=== PATIENT | male | born 1955 | race Caucasian/White ===

== ENCOUNTER 2016-09-16 22:31 | Inpatient (IN) ==
[2016-09-17] MEDS ORDERED: Naloxone 0.4 MG/ML INJ IVP PRN (03:11)
[2016-09-17] MEDS ORDERED: D5% in Water 1,000 ML IV PRN (03:12)
[2016-09-17] MEDS ORDERED: Dextrose Gel 15 GM PO PRN ×2 (03:12)
[2016-09-17] MEDS ORDERED: *HR* Dextrose 50 % in Water (Syg) 50 ML SYRINGE IVP PRN (03:12)
[2016-09-17] MEDS ORDERED: Ipratropium/Albuterol Neb 3 ML IH PRN (03:13)
[2016-09-17] MEDS ORDERED: Furosemide 20 MG/2 ML VIAL IVP ONE (03:26)
--- NOTE | 2016-09-17 03:44 | Internal Med History&Physical ---
Date of Encounter: 09/17/16 Time of Encounter: 03:00 Assessment and Plan (1) Acute respiratory failure with hypercapnia Current visit: Yes Status: Acute ABG at [facility]: 7.30/87/72/42.7/91 LIkely secondary to COPD exacerbation, however patient has chronic history of CO2 retention Respiratory status improved since arrival Currently saturating well on nasal cannula Will continue IV steroids and bronchodilators continue to closely monitor O2 sat, O2sat goal: 89-92% monitor off abx at this time, no clinical signs of infectious etiology present Bipap as needed ABG as needed (2) COPD exacerbation Current visit: Yes Status: Acute Likely secondary to noncompliance continue management as listed above (3) CHF (congestive heart failure) Current visit: Yes Status: Acute Last 2D echo from March 2016: LVEF 65-70% Continue diuretic therapy Qualifiers: Congestive heart failure type: unspecified congestive heart failure type Congestive heart failure chronicity: chronic Qualified Code(s): I50.9 - Heart failure, unspecified (4) Lung cancer Current visit: Yes Status: Chronic Unclear of patient's current status with malignancy As of March 2017, palliative care was recommending hospice Please follow up with family in regards to goals of care and code status Qualifiers: Laterality: right Lung location: unspecified part of lung Qualified Code( s): C34.91 - Malignant neoplasm of unspecified part of right bronchus or lung (5) Hyperglycemia due to type 2 diabetes mellitus Current visit: Yes Status: Chronic Continue to monitor fingerstick and blood glucose continue home insulin dosing Started correctional insulin sliding scale as needed Qualifiers: Diabetes mellitus nursing home insulin use: unspecified nursing home insulin use status Qualified Code(s): E11.65 - Type 2 diabetes mellitus with hyperglycemia (6) Obesity (BMI 30-39.9) Current visit: Yes Status: Chronic (7) DVT prophylaxis Current visit: Yes Status: Acute Lovenox SQ Internal Medicine - H&P: HPI Chief complaint: transfer from [place] for respiratory distress Admitted From: Intrahospital Transfer Plans for Post Hospital Care: Home History of present illness: Mr. Marrero is a 60 year old male with PMH of COPD on home oxygen, right lung cancer s/p chemo and radiation, CHF, DM, HTN, MRDD who is transferred from [facility] for management of acute respiratory failure. [facility], patient was noted to be saturating in 70s with nasal cannula. He received IV steroids, antibiotics, and nebulizer treatments with improvement in his saturation and was transferred to [facility] for further management. Patient has underlying MRDD and not able to provide history due to which information was obtained from the records. Pt has history of right lung cancer with mediastinal lymphadenopathy and has undergone chemo and radiation therapy at [facility]. He was hospitalized in March 2016 for the same complains as today. Palliative care consultation was initiated and patient was made DNR CC arrest at that time , and patient was qualified as a candidate for hospice care. At this time I am not able to get in touch with patient's family and he is not able to provide me information about his advance directives. He is resting in bed, saturating well on nasal cannula. He reports of not using his bronchodilators as prescribed for the last few days which contributed to his current exacerbation. He denies any headache, chest pain, abd pain, n/v, fever, or chills at this time. He reports of worsening exertional dyspnea prior to hospitalization. Patient is AAO x 3 however does not demonstrate understanding of his medical history or diagnosis. Please follow up with family in regards to patient's code status. Past Med Surg Social Fam HX - Past Medical History Medical history: cancer, CHF, COPD, diabetes, GERD, hyperlipidemia, hypertension , other Psychiatric history: anxiety, depression - Past Surgical History Surgical History: sinus surgery, other - Social History Smoking Status: Former smoker Smokeless Tobacco Status: No Alcohol use: none Drug use: none - Family History Father Adopted: [place]: Henrry Marrero Family Member Ethnicity: Non- Living Status: Age at : 55 Cause of : prostate CA Hx Family Cardiac Disorders: No Hx Family Respiratory Disorders: Yes Hx Family Cancer: No Hx Family GI Disorders: No Hx Family Endocrine Disorder: No Hx Family Neuromuscular Disorders: No Hx Family Neurologic Disorders: No Hx Family HEENT Disorders: No Hx Family Autoimmune Disorders: No Internal Medicine - H&P: Meds Albuterol Neb [Proventil Neb] 2.5 mg IH Q4HR 12/21/15 [History] Albuterol Sulfate [Albuterol Inhaler] 2 puff IH Q4H PRN 12/21/15 [History] Fluticasone/Salmeterol [Advair 100-50 Diskus] 1 puff PO BID 12/21/15 [History] Ipratropium/Albuterol Neb [Duoneb] 3 ml IH QID 12/21/15 [History] Lovastatin 40 mg PO DAILY 12/21/15 [History] Omeprazole [PriLOSEC] 20 mg PO DAILY 12/21/15 [History] Tiotropium [Spiriva] 1 puff IH DAILY 12/21/15 [History] TraZODone 50 mg PO HS 12/21/15 [History] Insulin Glargine [Lantus] 12 unit SQ HS 01/22/16 [History] Ibuprofen [Motrin] 600 mg PO Q8HR PRN 03/26/16 [History] Aclidinium Bassett [Tudorza Pressair] 1 puff IH DAILY 04/03/16 [History] Mag Hydrox/Al Hydrox/Simeth [Maalox Advanced Suspension] 10 ml PO DAILY [History] Ondansetron HCl [Zofran] 1 tab PO TID PRN 04/03/16 [History] Oxycodone HCl [Oxaydo] 1 tab PO QID PRN 04/03/16 [History] Lactobacillus [Culturelle] 1 cap PO BID 05/01/16 [History] Famotidine [Heartburn Prevention] 20 mg PO DAILY 09/16/16 [History] Furosemide [Lasix] 80 mg PO DAILY 09/16/16 [History] Potassium Chloride [K-Tab ER] 20 meq PO DAILY 09/16/16 [History] Allergies No Known Allergies Allergy (Verified 08/16/15 19:50) All Systems PM: A 10-system review of systems was performed and is negative for pertinent findings except as documented above in the HPI. - Constitutional Constitutional: as per HPI - Constitutional Vitals: Temp Pulse Resp BP Pulse Ox 98.1 F 125 20 119/88 88 L 09/16/16 23:58 09/16/16 23:58 09/16/16 23:58 09/16/16 23:58 09/16/16 23:58 General appearance: Present: A&O X 3, morbidly obese, no acute distress - Head Head exam: Present: atraumatic, normocephalic - Eye Eye exam: Present: normal appearance, conjuntiva pink, sclera anicteric - Respiratory Respiratory exam: Present: wheezes (bilateral expiratory wheezing and bibasilar crackles). Absent: accessory muscle use, respiratory distress - Cardiovascular Cardiovascular exam: Present: +S1, +S2, tachycardia - GI/Abdominal GI/Abdominal exam: Present: distended (obese), normal bowel sounds, soft. Absent: tenderness - Extremities Exam Extremities exam: Present: pedal edema, warm, radial pulses palpable and symetrical. Absent: calf tenderness, tenderness - Neurological Exam Neurological exam: Present: alert, oriented X3 - Psychiatric Psychiatric exam: Present: normal affect, normal mood
[2016-09-17] MEDS: Insulin LISPRO 300 UNITS/3 ML VIAL SQ SCH ×5 (03:54→22:12)
[2016-09-17 05:48] LABS: Basophils % 0.1 %; Hematocrit 44.1 % (37.5-50.1); Hemoglobin 13.7 g/dL (12.9-16.9); Immature Granulocytes % 0.6 % (0-4); Lymphocytes # 0.5 K/mcL (0.6-4.6); Lymphocytes % 4.8 %; Mean Corpuscular HGB Conc 31.1 g/dL (31.6-35.5); Mean Corpuscular Volume 90.2 fL (83.0-100.0); Mean Platelet Volume 10.5 fL (9.4-12.4); Monocytes # 0.2 K/mcL (0.0-1.3); Monocytes % 1.7 %; Neutrophils # 8.8 K/mcL (1.6-8.9); Platelet Count 243 K/mcL (140-400); Red Blood Count 4.89 M/mcL (4.19-5.50); Red Cell Distribution Width 13.9 % (11.5-14.5); Segmented Neutrophils % 92.8 %
[2016-09-17] MEDS ORDERED: MethylPREDNISolone 40 MG/ML VIAL IVP SCH (06:00)
[2016-09-17 06:56] LABS: BUN/Creatinine Ratio 15 (6-26); Blood Urea Nitrogen 13 mg/dL (8-26); Calcium 9.5 mg/dL (8.6-10.8); Carbon Dioxide 35 mEq/L (19-29); Chloride 94 mEq/L (98-109); Glucose 353 mg/dL (70-99); Magnesium 1.7 mg/dL (1.6-2.6); Osmolality,Calculated 300 (280-300); Phosphorous 2.7 mg/dL (2.3-4.7); Potassium 4.4 mEq/L (3.5-4.5); Sodium 138 mEq/L (136-145); eGFR For African Americans > 60 (> 60); eGFR For Non-African Americans > 60 (> 60)
[2016-09-17] MEDS: MethylPREDNISolone 40 MG/ML VIAL IVP SCH ×3 (06:56→22:12)
[2016-09-17] MEDS: *HR* Enoxaparin 40 MG/0.4 ML SYRINGE SQ SCH (06:57)
[2016-09-17] MEDS: Ipratropium/Albuterol Neb 3 ML IH SCH ×5 (09:47→20:13)
[2016-09-17] MEDS: Furosemide 40 MG TABLET PO SCH (09:56)
--- NOTE | 2016-09-17 10:27 | Event Note ---
<Mayo Mena - Last Filed: 09/17/16 14:54> Date of Encounter: 09/17/16 Time of Encounter: 08:15 Mr. Marrero 60-year-old male with known COPD, heart failure and type 2 diabetes has been seen and evaluated this morning after his admission earlier this morning. He is in stable condition in good humor and his only complaints this morning consist of continued shortness of breath which improved status post DuoNeb treatment. Patient felt that he fell behind on his DuoNeb treatments at home and that may be contributing to his current breathing issues. He maintains appetite and thirst. Patient complains of right lower abdominal tenderness which he first noticed this morning. He says his last bowel movement was over 4 days ago and at he has not been taking his bowel regimens at home. He denies any other concerns or complaints at this time. Vitals were reviewed. Blood pressure stable, afebrile, oxygen saturation. 90% on 4 L. Laboratory results reviewed. Physical examination demonstrates diminished bronchial vesicular breath sounds, with mild expiratory wheeze. Abdomen is distended with tenderness to palpation in the right lower quadrant. Abdomen was without erythema, edema or ecchymosis. Patient has positive bowel sounds. Extremities without erythema or edema. Assessment and plan: COPD exacerbation: patient started back on Levaquin 750 daily, continue current breathing treatments that include DuoNeb, Symbicort and methylprednisone steroids. History of CHF: Continue Lasix 80 mg by mouth. Patient does not appear to be fluid overloaded Type 2 diabetes: Patient has hyperglycemia likely secondary to COPD exacerbation and methylprednisone steroid bump. Continue inpatient sliding scale. <Ck Samuels - Last Filed: 09/17/16 18:42> Date of Encounter: 09/17/16 Mr. Marrero was admitted during the night for acute respiratory distress due to COPD. On exam he has large mass in L supraclavicular area and dilated vessels on L arm. Will check CT to R/O thrombus.
[2016-09-17] MEDS: Budesonide/Formoterol 80/4.5 MDI IH SCH (11:22)
[2016-09-17] MEDS ORDERED: GuaiFENesin Liq 200 MG/10 ML UDC PO PRN (13:42)
[2016-09-17] MEDS ORDERED: Insulin DETEMIR 100 UNIT/ML X5UNITS SQ SCH (21:00)
[2016-09-17] MEDS ORDERED: NON-FORMULARY MEDICATION 1 EACH EACH (Insulin Glargine [Lantus] 12 UNIT) SQ SCH (21:00)
[2016-09-17] MEDS: Levofloxacin 750 MG/150 ML 750 MG/150 ML BAG IVPB SCH (22:11)
[2016-09-18] MEDS: Ipratropium/Albuterol Neb 3 ML IH SCH ×7 (00:16→23:45)
[2016-09-18] MEDS: Budesonide/Formoterol 80/4.5 MDI IH SCH ×3 (00:17→20:03)
[2016-09-18 06:14] LABS: Basophils % 0.1 %; Hematocrit 42.1 % (37.5-50.1); Hemoglobin 13.2 g/dL (12.9-16.9); Immature Granulocytes % 0.7 % (0-4); Lymphocytes # 0.9 K/mcL (0.6-4.6); Lymphocytes % 7.4 %; Mean Corpuscular HGB Conc 31.4 g/dL (31.6-35.5); Mean Corpuscular Hemoglobin 27.8 pg (28.0-33.3); Mean Corpuscular Volume 88.8 fL (83.0-100.0); Mean Platelet Volume 10.9 fL (9.4-12.4); Monocytes # 0.7 K/mcL (0.0-1.3); Monocytes % 5.4 %; Neutrophils # 10.4 K/mcL (1.6-8.9); Platelet Count 253 K/mcL (140-400); Red Blood Count 4.74 M/mcL (4.19-5.50); Red Cell Distribution Width 14.1 % (11.5-14.5); Segmented Neutrophils % 86.4 %
[2016-09-18 06:30] LABS: BUN/Creatinine Ratio 22 (6-26); Blood Urea Nitrogen 20 mg/dL (8-26); Calcium 9.8 mg/dL (8.6-10.8); Carbon Dioxide 39 mEq/L (19-29); Chloride 90 mEq/L (98-109); Glucose 365 mg/dL (70-99); Osmolality,Calculated 307 (280-300); Potassium 3.7 mEq/L (3.5-4.5); Sodium 140 mEq/L (136-145); eGFR For African Americans > 60 (> 60); eGFR For Non-African Americans > 60 (> 60)
[2016-09-18] MEDS: MethylPREDNISolone 40 MG/ML VIAL IVP SCH (06:50)
[2016-09-18] MEDS: *HR* Enoxaparin 40 MG/0.4 ML SYRINGE SQ SCH (06:50)
[2016-09-18] MEDS: Furosemide 40 MG TABLET PO SCH (09:28)
[2016-09-18] MEDS: Insulin LISPRO 300 UNITS/3 ML VIAL SQ SCH ×4 (09:28→21:06)
--- NOTE | 2016-09-18 16:22 | Internal Med Progress Note ---
<Mayo Mena - Last Filed: 09/18/16 16:20> Date of Encounter: 09/18/16 Time of Encounter: 08:30 - Assessment and plan (1) COPD exacerbation Current Visit: Yes Status: Acute Assessment and plan: Patient with known COPD and lung cancer presenting with COPD exacerbation. Still continuing nasal cannula oxygen therapy. Overall condition improving. Plan: - Continue DuoNeb scheduled therapy, continue Symbicort 1 puff twice a day - Continue to wean nasal cannula oxygen therapy - IV steroids switched to prednisone 40 mg by mouth daily - Continue Levaquin 750 mg IV every 24 hours (2) Acute respiratory failure with hypercapnia Current Visit: Yes Status: Acute Assessment and plan: Acute on chronic respiratory failure in the setting of COPD exacerbation with patient known to have underling COPD and lung cancer. Patient is improving compared to admission with reduction in oxygen requirements and improvement in respiratory status. Plan: -As discussed below. (3) Hyperglycemia due to type 2 diabetes mellitus Current Visit: Yes Status: Chronic Assessment and plan: Patient is hyperglycemic with known type 2 diabetes. Likely secondary to COPD exacerbation and IV steroids. Plan: -Continue before meals and at bedtime glucose checks - Levemir increased to 24 units subcutaneous at bedtime, continue inpatient glucose sliding scale Qualifiers: Diabetes mellitus prison insulin use: unspecified roasterman insulin use status Qualified Code(s): E11.65 - Type 2 diabetes mellitus with hyperglycemia (4) Lung cancer Current Visit: Yes Status: Chronic Assessment and plan: Patient has known history of right hilar mass which appears stable on chest x- ray. Currently in stable condition. Qualifiers: Laterality: right Lung location: unspecified part of lung Qualified Code( s): C34.91 - Malignant neoplasm of unspecified part of right bronchus or lung (5) Obesity (BMI 30-39.9) Current Visit: Yes Status: Chronic Assessment and plan: Patient morbidly obese, lifestyle modifications diet modifications to be discussed prior to discharge to improve overall medical comorbidities. (6) DVT prophylaxis Current Visit: Yes Status: Acute Assessment and plan: Continue Lovenox 40 mg subcutaneous every 6 hours. - Subjective Interval history: Mr. Marrero has been seen and evaluated patient bedside this morning. He is sitting up in the cherries in no acute distress and is without concern. He feels like his breathing has improved but is not completely back to baseline. He denies any other pains or discomfort at this time, he denies nausea, vomiting , diarrhea. He has no other concerns and wishes to feel better prior to discharge. - Constitutional Vitals: Temp Pulse Resp BP Pulse Ox 97.6 F 102 16 115/76 95 09/18/16 15:49 09/18/16 15:49 09/18/16 15:49 09/18/16 15:49 09/18/16 15:49 General appearance: Present: A&O X 3, morbidly obese, no acute distress - Head Head exam: Present: atraumatic, normocephalic - Eye Eye exam: Present: PERRL, conjuntiva pink, sclera anicteric - ENT ENT exam: Present: mucous membranes moist - Neck Neck exam general surgery: Present: supple, trachea midline - Respiratory Respiratory exam: Present: wheezes Additional comments: Patient has diffuse diminished bronchial vesicular breath sounds with mild expiratory wheeze. - Cardiovascular Cardiovascular exam: Present: RRR, +S1, +S2 - GI/Abdominal GI/Abdominal exam: Present: normal bowel sounds, soft. Absent: tenderness Additional comments: Obese abdomen - Extremities Exam Extremities exam: Present: normal capillary refill, warm, radial pulses palpable and symetrical Additional comments: Extremities symmetric bilaterally without any signs of deformity. Patient is moving all 4 extremities without restriction. - Back Exam Back exam: Present: normal inspection - Neurological Exam Neurological exam: Present: alert, oriented X3, no focal deficits, strengths equal and symetr throughout - Psychiatric Psychiatric exam: Present: normal affect, normal mood - Skin Skin exam: Present: warm Internal Medicine: Result - Labs CBC & Chem 7: 09/18/16 05:08 09/18/16 05:08 Labs: Short CBC 09/18/16 Range/Units 05:08 WBC 12.0 H (4.3-11.1) K/mcL Hgb 13.2 (12.9-16.9) g/dL Hct 42.1 (37.5-50.1) % Plt Count 253 (140-400) K/mcL Neutrophils # 10.4 H (1.6-8.9) K/mcL BMP 09/18/16 05:08 Sodium 140 Potassium 3.7 Chloride 90 L Carbon Dioxide 39 H BUN 20 Creatinine 0.89 Glucose 365 H Calcium 9.8 - Impressions Impressions Chest CT 09/17/16 18:43 IMPRESSION: 1. Mild worsening moderate right pleural effusion with compressive atelectasis. 2. Unchanged partial collapse of the right middle lobe. 3. Unchanged right upper lobe pulmonary nodules, bronchiolitis and right lower lobe airspace disease likely due to post treatment changes, but cannot exclude underlying malignancy. 4. Improved with only 1 residual enlarged left paratracheal lymph node. 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 Follow up with PCP in the next 3-5 days. Return to the emergency department if symptoms return or worsen. Referrals: NO,PCP [Primary Care Provider] - Bobby Terrell DO [Non-Partnered Physician] - 09/23/16 2:30 pm Prescriptions: Levofloxacin [Levaquin] 750 mg PO DAILY #5 tablet PredniSONE 40 mg PO DAILY 5 Days <Ck Samuels - Last Filed: 09/19/16 17:36> Date of Encounter: 09/18/16 - Constitutional Vitals: Temp Pulse Resp BP Pulse Ox 97.1 F L 97 18 126/82 94 L 09/19/16 08:00 09/19/16 08:00 09/19/16 16:32 09/19/16 08:00 09/19/16 16:32 Internal Medicine: Result - Labs CBC & Chem 7: 09/19/16 04:37 09/19/16 04:37 Labs: Short CBC 09/19/16 Range/Units 04:37 WBC 11.6 H (4.3-11.1) K/mcL Hgb 13.6 (12.9-16.9) g/dL Hct 43.8 (37.5-50.1) % Plt Count 234 (140-400) K/mcL Neutrophils # 8.8 (1.6-8.9) K/mcL BMP 09/19/16 04:37 Sodium 143 Potassium 3.0 L Chloride 91 L Carbon Dioxide 41 H* BUN 22 Creatinine 0.86 Glucose 197 H Calcium 9.5 - Attending Attestation I examined this patient and my medical decision-making was reviewed with the Resident Physician on . I agree with the documented findings, disposition and treatment plan as described except to the extent set forth below. Mr. Marrero is feeling somewhat better today. He is on less oxygen. He denies chest pain or GI symptoms. Blood sugars high with steroids. Exam Alert. Comfortable Heart reg Lungs with no wheeze now. Diminished Abd soft I/P 1. Acute exac COPD 2. Hyperglycemia - decrease steroids. Further diagnoses and plan as above.
[2016-09-18] MEDS ORDERED: Insulin DETEMIR 100 UNIT/ML X5UNITS SQ SCH (21:00)
[2016-09-18] MEDS: Levofloxacin 750 MG/150 ML 750 MG/150 ML BAG IVPB SCH (21:05)
[2016-09-19] MEDS: Ipratropium/Albuterol Neb 3 ML IH SCH ×4 (03:19→16:32)
[2016-09-19 05:03] LABS: Basophils % 0.1 %; Eosinophils % 0.2 %; Hematocrit 43.8 % (37.5-50.1); Hemoglobin 13.6 g/dL (12.9-16.9); Immature Granulocytes % 0.4 % (0-4); Lymphocytes # 1.5 K/mcL (0.6-4.6); Mean Corpuscular HGB Conc 31.1 g/dL (31.6-35.5); Mean Corpuscular Hemoglobin 28.1 pg (28.0-33.3); Mean Corpuscular Volume 90.5 fL (83.0-100.0); Mean Platelet Volume 10.4 fL (9.4-12.4); Monocytes # 1.2 K/mcL (0.0-1.3); Monocytes % 10.6 %; Neutrophils # 8.8 K/mcL (1.6-8.9); Platelet Count 234 K/mcL (140-400); Red Blood Count 4.84 M/mcL (4.19-5.50); Red Cell Distribution Width 14.6 % (11.5-14.5); Segmented Neutrophils % 75.7 %
[2016-09-19 05:21] LABS: BUN/Creatinine Ratio 26 (6-26); Blood Urea Nitrogen 22 mg/dL (8-26); Calcium 9.5 mg/dL (8.6-10.8); Chloride 91 mEq/L (98-109); Glucose 197 mg/dL (70-99); Osmolality,Calculated 305 (280-300); Sodium 143 mEq/L (136-145); eGFR For African Americans > 60 (> 60); eGFR For Non-African Americans > 60 (> 60)
[2016-09-19 05:31] LABS: Carbon Dioxide 41 mEq/L (19-29)
[2016-09-19] MEDS: *HR* Enoxaparin 40 MG/0.4 ML SYRINGE SQ SCH (05:45)
[2016-09-19] MEDS: Budesonide/Formoterol 80/4.5 MDI IH SCH (07:53)
[2016-09-19 08:06] VITALS: BP 126/82
[2016-09-19] MEDS: Furosemide 40 MG TABLET PO SCH (08:08)
[2016-09-19] MEDS: Insulin LISPRO 300 UNITS/3 ML VIAL SQ SCH ×3 (08:08→17:12)
[2016-09-19] MEDS ORDERED: predniSONE 20 MG TABLET PO SCH (09:00)
--- NOTE | 2016-09-19 14:40 | Discharge Summary ---
<Mayo Mena - Last Filed: 09/19/16 14:32> Date of Encounter: 09/19/16 Time of Encounter: 09:00 - Discharge Diagnosis (1) COPD exacerbation Priority: Primary Status: Acute (2) Acute respiratory failure with hypercapnia Priority: Primary Status: Acute (3) Hyperglycemia due to type 2 diabetes mellitus Priority: Secondary Status: Chronic Qualifiers: Diabetes mellitus fdc insulin use: unspecified fdc insulin use status Qualified Code(s): E11.65 - Type 2 diabetes mellitus with hyperglycemia (4) Lung cancer Priority: Secondary Status: Chronic Qualifiers: Laterality: right Lung location: unspecified part of lung Qualified Code( s): C34.91 - Malignant neoplasm of unspecified part of right bronchus or lung (5) Obesity (BMI 30-39.9) Priority: Secondary Status: Chronic (6) DVT prophylaxis Priority: Secondary Status: Acute - Discharge Medications Prescriptions: Levofloxacin [Levaquin] 750 mg PO DAILY #5 tablet PredniSONE 40 mg PO DAILY 5 Days Home Medications: Albuterol Neb [Proventil Neb] 2.5 mg IH Q4HR PRN 12/21/15 [History] Albuterol Sulfate [Albuterol Inhaler] 2 puff IH Q4H PRN 12/21/15 [History] Fluticasone/Salmeterol [Advair 100-50 Diskus] 1 puff PO BID 12/21/15 [History] Lovastatin 40 mg PO DAILY 12/21/15 [History] Omeprazole [PriLOSEC] 20 mg PO DAILY 12/21/15 [History] Tiotropium [Spiriva] 18 mcg IH DAILY 12/21/15 [History] TraZODone 50 mg PO HS PRN 12/21/15 [History] Insulin Glargine [Lantus] 12 unit SQ HS 01/22/16 [History] Ibuprofen [Motrin] 600 mg PO Q8HR PRN 03/26/16 [History] Famotidine [Heartburn Prevention] 20 mg PO HS 09/16/16 [History] Furosemide [Lasix] 80 mg PO BID 09/16/16 [History] Potassium Chloride [K-Tab ER] 20 meq PO DAILY 09/16/16 [History] Cetirizine HCl [All Day Allergy] 10 mg PO DAILY 09/17/16 [History] Guaifenesin [Iophen Nr] 200 mg PO Q4H PRN 09/17/16 [History] Oxycodone HCl/Acetaminophen [Percocet 5-325 mg Tablet] 1 each PO Q8H PRN [History] Sennosides [Senna] 17.2 mg PO HS 09/17/16 [History] Levofloxacin [Levaquin] 750 mg PO DAILY #5 tablet 09/19/16 [Rx] PredniSONE 40 mg PO DAILY 5 Days 09/19/16 [Rx] Allergies/Adverse Reactions: Allergies No Known Allergies Allergy (Verified 08/16/15 19:50) Procedures/tests Complete & Pending: Procedures Performed prior 72 hours Category Date Time Status CT chest w con [CT] Routine Cat Scan 09/17/16 18:43 Completed EV venous imaging UE LT Routine Y 09/18/16 16:18 Completed Date of admission: 09/16/16 23:41 Primary care physician: PCP NO Discharging clinician: Mayo Mena Anticipated date of discharge: 09/19/16 - Patient Status Disposition: Home, Self-Care Condition: Good Functional capacity at discharge: independent ambulation Overall status at discharge: patient is progressing back to baseline - Discharge Instructions Instructions: Prednisone (By mouth), Levofloxacin (By mouth), Heart Failure (DC ), Acute Respiratory Distress Syndrome (DC), Lung Cancer (DC), Lung Cancer (GEN) , Diabetes Mellitus Type 1 in Adults (DC), Chronic Obstructive Pulmonary Disease (DC), Chronic Hypertension (DC), Anemia (GEN), Pneumonia (DC), Lung 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 Follow up with PCP in the next 3-5 days. Return to the emergency department if symptoms return or worsen. - Diet and Activity Activity: increase activity as tolerated, wear oxygen at all times Diet: advance to your usual diet Interval History: Mr. Marrero 59 year old male with known lung mass and COPD was admitted on 09/17 for COPD exacerbation. His baseline oxygen requirements are 3L at home. He required 5 liters oxygen NC upon admission. After admission he was started on steroids, scheduled breathing treatments, Levaquin for antibiotic coverage. He complained of abdominal tenderness on the lateral right and constipation for 4+ days. He remained inpatient with stable blood pressure, afebrile, and improving daily with inpatient treatment. Oxygen was weaned down to patients baseline prior to discharge. Constipation resolved. Patient was deemed stable for discharge home with close follow up within 3-5 days post discharge. Scripts were provided at the time of discharge for Levaquin and Prednisone. Hospital course: Mr. Marrero is a 60 year old male - Time Spent with Patient Total time spent providing and/or coordinating discharge services: - Constitutional Vitals: Temp Pulse Resp BP Pulse Ox 97.1 F L 97 18 126/82 86 L 09/19/16 08:00 09/19/16 08:00 09/19/16 11:21 09/19/16 08:00 09/19/16 11:21 General appearance: Present: A&O X 3, morbidly obese, no acute distress - Head Head exam: Present: atraumatic, normocephalic - Eye Eye exam: Present: PERRL, conjuntiva pink, sclera anicteric - ENT ENT exam: Present: mucous membranes moist - Neck Neck exam general surgery: Present: supple, trachea midline - Respiratory Additional comments: diminished breathsounds in the right lower lung base, clear to auscultation in all other lung gasca. - Cardiovascular Cardiovascular exam: Present: RRR - GI/Abdominal GI/Abdominal exam: Present: normal bowel sounds (obese abdomen), soft. Absent: tenderness - Extremities Exam Extremities exam: Present: pedal edema, warm, radial pulses palpable and symetrical - Neurological Exam Neurological exam: Present: alert, no focal deficits, strengths equal and symetr throughout. Absent: speech deficit - Psychiatric Psychiatric exam: Present: normal affect, normal mood - Skin Skin exam: Present: warm <Ck Samuels - Last Filed: 09/19/16 17:42> Date of Encounter: 09/19/16 - Discharge Diagnosis (1) Acute respiratory failure with hypercapnia Status: Acute (2) COPD exacerbation Status: Acute (3) Type 2 diabetes mellitus Priority: Secondary Status: Chronic Qualifiers: Diabetes mellitus complication status: with hyperglycemia Diabetes mellitus fdc insulin use: with exterminator use Qualified Code(s): E11.65 - Type 2 diabetes mellitus with hyperglycemia; Z79.4 - assisted (current) use of insulin (4) CHF (congestive heart failure) Priority: Secondary Status: Chronic Qualifiers: Congestive heart failure type: diastolic Congestive heart failure chronicity: acute on chronic Qualified Code(s): I50.33 - Acute on chronic diastolic (congestive) heart failure (5) HTN (hypertension) Priority: Secondary Status: Chronic Qualifiers: Hypertension type: essential hypertension Qualified Code(s): I10 - Essential (primary) hypertension (6) Obesity (BMI 30-39.9) Status: Chronic Procedures/tests Complete & Pending: Procedures Performed prior 72 hours Category Date Time Status CT chest w con [CT] Routine Cat Scan 09/17/16 18:43 Completed EV venous imaging UE LT Routine Y 09/18/16 16:18 Completed Date of admission: 09/16/16 23:41 Primary care physician: PCP NO Hospital course: Mr. Marrero is a 60 year old male - Time Spent with Patient Total time spent providing and/or coordinating discharge services: 42min - Constitutional Vitals: Temp Pulse Resp BP Pulse Ox 97.1 F L 97 18 126/82 94 L 09/19/16 08:00 09/19/16 08:00 09/19/16 16:32 09/19/16 08:00 09/19/16 16:32 - Attending Attestation I examined this patient and my medical decision-making was reviewed with the Resident Physician on 09/19/16. I agree with the documented findings, disposition and treatment plan as described except to the extent set forth below. Mr. Marrero feels at baseline and is ready to go home. No CP or SOB currently. Exam Alert. Comfortable Heart reg Lungs clear now Abd soft and nontender Less edema Plan D/C today. Follow up with PCP Pt afebrile and stable for d/c.
--- NOTE | 2016-09-19 18:00 | Venous Imaging Report ---
UE Venous Duplex Patient Name:Chucho Marrero Order Number:[id number] Procedure Date:09/18/2016 Date:1955ge:60 yrs Gender:Male Location: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 obstruction Secondary Indications: Impressions: Normal left upper extremity deep venous exam. Acute superficial venous thrombosis is present in a left upper extremity collateral vein. Normal contralateral jugular vein. Recommendations: After imaging the patient returned to their room. Findings Venous Duplex Results: Right: Venous imaging of the upper extremity reveals full patency and normal vessel compressibility of the right jugular. Doppler signals in the evaluated veins were normal. Left: Venous imaging of the upper extremity reveals full patency and normal vessel compressibility of the left jugular, left subclavian, left axillary, left brachial, left cephalic, left basilic, left radial and left ulnar. Doppler signals in the evaluated veins were normal. The left collateral demonstrates an incompressible vein. Flow was absent and it did not augment. Prior Study: No prior study available for comparison. Upper Extremity Venous Duplex Side Vein Compress Spontaneous Flow Augment Left Jugular Normal yes Phasic yes Left Subclavian Normal yes Phasic yes Left Axillary Normal yes Phasic yes Left Brachial Normal yes Phasic yes Left Cephalic Normal yes Phasic yes Left Basilic Normal yes Phasic yes Left Radial Normal yes Phasic yes Left Ulnar Normal yes Phasic yes Right Jugular Normal yes Phasic yes Left Collateral None no Absent no Updated by Chucho Johnson MD on 09/19/2016 5:55:57 PM electronically signed on 09/19/2016 5:56:47 PM with status of Final
== END 2016-09-19 17:51 | disposition home or self-care (01) | DRG 140 ==
LOC: 2NENU 23:41 → SUATTDRO 23:41
PROVIDERS: ADMIT Family Medicine; ATTEND Internal Medicine

== ENCOUNTER 2019-07-01 20:08 | Inpatient (IN) ==
[2019-07-01] MEDS ORDERED: Albuterol 2.5 MG/3 ML NEBULIZER IH PRN (22:44)
[2019-07-01] MEDS: Ipratropium/Albuterol Neb 3 ML IH SCH (23:08)
[2019-07-01 23:13] LABS: ABG Base Excess 25 mEq/L (-2 to 3); ABG HCO3 58 mEq/L (21-27); ABG Oxygen Saturation 86 % (95-98); ABG PCO2 99 mmHg (35-45); ABG PH 7.37 pH Units (7.32-7.45); ABG PO2 58 mmHg (85-104); ABG TCO2 > 50 mEq/L (20-26); Blood Gas Modality BiLevel; Blood Gas VT 500 cc
[2019-07-02] MEDS ORDERED: Naloxone 0.4 MG/ML INJ IVP PRN (00:28)
[2019-07-02] MEDS ORDERED: *HR* Dextrose 50 % in Water (Syg) 50 ML SYRINGE IVP PRN (00:38)
[2019-07-02] MEDS ORDERED: D5% in Water 1,000 ML IVC PRN (00:38)
[2019-07-02] MEDS ORDERED: Dextrose Gel 15 GM/37.5 ML TUBE PO PRN ×2 (00:38)
[2019-07-02] MEDS ORDERED: Furosemide 40 MG/4 ML VIAL IVP SCH (00:42)
[2019-07-02] MEDS: Insulin DETEMIR 100 UNIT/ML X5UNITS SQ SCH ×2 (01:12→21:30)
[2019-07-02] MEDS: *HR* Heparin 5,000 UNIT/ML VIAL SQ SCH ×4 (01:16→21:29)
[2019-07-02 01:39] LABS: Bilirubin,Urine Negative (Negative); Blood,Urine Negative (Negative); Clarity,Urine Clear (Clear); Color,Urine Yellow (Yellow); Glucose,Urine (UA) Normal (Normal); Ketones,Urine 80 mg/dL (Negative); Leukocyte Esterase,Urine Negative (Negative); Nitrite,Urine Negative (Negative); PH,Urine 8.5 pH Units (5.0-8.0); Protein,Urine Negative (Neg-Trace); Specific Gravity,Urine 1.017 (1.010-1.025); Urobilinogen,Urine Normal (Normal)
[2019-07-02] MEDS ORDERED: Isovue-370 500 ML BOTTLE IVP ONE (01:51)
[2019-07-02] MEDS: Ipratropium/Albuterol Neb 3 ML IH SCH ×4 (03:22→21:57)
[2019-07-02 04:19] LABS: INR 1.4; Prothrombin Time 15.9 Seconds (9.4-12.1)
[2019-07-02 04:27] LABS: Basophils % 0.3 %
[2019-07-02 04:29] LABS: Hematocrit 45.3 % (37.5-50.1); Hemoglobin 13.2 g/dL (12.9-16.9); Immature Granulocytes % 1.3 % (0-4); Lymphocytes # 0.6 K/mcL (0.6-4.6); Lymphocytes % 8.3 %; Mean Corpuscular HGB Conc 29.1 g/dL (31.6-35.5); Mean Corpuscular Hemoglobin 26.9 pg (28.0-33.3); Mean Corpuscular Volume 92.3 fL (83.0-100.0); Mean Platelet Volume 11.5 fL (9.4-12.4); Monocytes # 0.1 K/mcL (0.0-1.3); Monocytes % 1.7 %; Neutrophils # 6.1 K/mcL (1.6-8.9); Platelet Count 205 K/mcL (140-400); Red Blood Count 4.91 M/mcL (4.19-5.50); Red Cell Distribution Width 14.1 % (11.5-14.5); Segmented Neutrophils % 88.4 %; White Blood Count 6.9 K/mcL (4.3-11.1)
[2019-07-02 04:42] LABS: Alanine Aminotransferase 9 Units/L (7-52); Albumin 3.7 g/dL (3.5-5.7); Albumin/Globulin Ratio 1.2 (1.1-2.2); Alkaline Phosphatase 72 Units/L (34-104); Aspartate Amino Transferase 19 Units/L (13-39); BUN/Creatinine Ratio 34 (6-26); Bilirubin,Total 1.1 mg/dL (0.3-1.0); Blood Urea Nitrogen 23 mg/dL (8-23); Calcium 9.6 mg/dL (8.6-10.3); Carbon Dioxide > 45 mEq/L (23-29); Chloride 84 mEq/L (98-107); Chol/HDL Ratio 5.1 (0-4.9); Cholesterol 158 mg/dL (< 200); Glucose 123 mg/dL (70-105); HDL Cholesterol 31 mg/dL (40-59); LDL Cholesterol,Calculated 106 mg/dL (0-99); Magnesium 1.9 mg/dL (1.6-2.6); Osmolality,Calculated 299 (280-300); Phosphorous 3.3 mg/dL (2.7-4.5); Potassium 4.4 mEq/L (3.5-5.1); Sodium 142 mEq/L (136-145); Total Protein 6.7 g/dL (6.4-8.9); Triglycerides 103 mg/dL (< 150); eGFR For African Americans > 60 (> 60); eGFR For Non-African Americans > 60 (> 60)
[2019-07-02] MEDS ORDERED: Perflutren Lipid Microsphere 1.3 ML in 0.9 % Sodium Chloride 8.7 ML IVP ONE (07:38)
[2019-07-02] MEDS ORDERED: cefTRIAXone 1,000 MG in Water for inj. (sterile) 10 ML IVP SCH (09:00)
[2019-07-02] MEDS: Insulin LISPRO 300 UNITS/3 ML VIAL SQ SCH ×3 (09:13→18:09)
[2019-07-02 09:54] LABS: ABG Base Excess 23 mEq/L (-2 to 3); ABG HCO3 54 mEq/L (21-27); ABG Oxygen Saturation 88 % (95-98); ABG PCO2 86 mmHg (35-45); ABG PO2 59 mmHg (85-104); ABG TCO2 > 50 mEq/L (20-26); Blood Gas Modality ST
[2019-07-02 12:39] LABS: BUN/Creatinine Ratio 33 (6-26); Blood Urea Nitrogen 23 mg/dL (8-23); Calcium 9.7 mg/dL (8.6-10.3); Carbon Dioxide > 45 mEq/L (23-29); Chloride 85 mEq/L (98-107); Glucose 119 mg/dL (70-105); Osmolality,Calculated 295 (280-300); Sodium 140 mEq/L (136-145); eGFR For African Americans > 60 (> 60); eGFR For Non-African Americans > 60 (> 60)
[2019-07-02] MEDS: predniSONE 20 MG TABLET PO SCH (13:06)
[2019-07-02] MEDS: Doxycycline 100 MG in 0.9 % Sodium Chloride Mini Bag 100 ML IVPB SCH (18:07)
[2019-07-02] MEDS ORDERED: Azithromycin 500 MG in 0.9 % Sodium Chloride 250 ML IVPB SCH (20:00)
[2019-07-03] MEDS ORDERED: Acetaminophen IV 500 MG/50 ML INFUS..BTL IVPB ONE (00:33)
[2019-07-03] MEDS: Ondansetron ODT 4 MG TAB.RAPDIS SL PRN ×2 (00:50→05:10)
[2019-07-03] MEDS: Ipratropium/Albuterol Neb 3 ML IH SCH ×4 (04:41→22:18)
[2019-07-03] MEDS: Doxycycline 100 MG in 0.9 % Sodium Chloride Mini Bag 100 ML IVPB SCH ×2 (05:24→18:37)
[2019-07-03] MEDS: *HR* Heparin 5,000 UNIT/ML VIAL SQ SCH ×3 (05:28→21:01)
[2019-07-03] MEDS: predniSONE 20 MG TABLET PO SCH (09:34)
[2019-07-03] MEDS: Insulin LISPRO 300 UNITS/3 ML VIAL SQ SCH ×3 (09:35→17:27)
[2019-07-03] MEDS ORDERED: Furosemide 40 MG/4 ML VIAL IVP ONE (09:38)
[2019-07-03 10:08] LABS: ABG Base Excess 21 mEq/L (-2 to 3); ABG HCO3 55 mEq/L (21-27); ABG Oxygen Saturation 92 % (95-98); ABG PCO2 110 mmHg (35-45); ABG PH 7.31 pH Units (7.32-7.45); ABG PO2 78 mmHg (85-104); ABG TCO2 > 50 mEq/L (20-26)
[2019-07-03 11:02] LABS: Red Cell Distribution Width 14.6 % (11.5-14.5)
[2019-07-03 11:03] LABS: Basophils % 0.6 %; Eosinophils # 0.1 K/mcL (0.0-0.6); Hemoglobin 13.6 g/dL (12.9-16.9); Immature Granulocytes % 0.7 % (0-4); Lymphocytes # 1.2 K/mcL (0.6-4.6); Lymphocytes % 17.1 %; Mean Corpuscular HGB Conc 30.2 g/dL (31.6-35.5); Mean Corpuscular Hemoglobin 27.2 pg (28.0-33.3); Monocytes # 0.8 K/mcL (0.0-1.3); Monocytes % 11.7 %; Neutrophils # 4.9 K/mcL (1.6-8.9); Platelet Count 210 K/mcL (140-400); Segmented Neutrophils % 68.9 %; White Blood Count 7.1 K/mcL (4.3-11.1)
[2019-07-03 11:21] LABS: Platelet Estimate Normal (Normal)
[2019-07-03 11:22] LABS: Basophilic Stippling 1+ (Not Present); Hypochromasia Present (Not Present)
[2019-07-03 11:48] LABS: BUN/Creatinine Ratio 28 (6-26); Blood Urea Nitrogen 22 mg/dL (8-23); Calcium 9.6 mg/dL (8.6-10.3); Chloride 86 mEq/L (98-107); Glucose 99 mg/dL (70-105); Osmolality,Calculated 295 (280-300); Potassium 3.6 mEq/L (3.5-5.1); Sodium 141 mEq/L (136-145); eGFR For African Americans > 60 (> 60); eGFR For Non-African Americans > 60 (> 60)
[2019-07-03 11:55] LABS: Carbon Dioxide > 45 mEq/L (23-29)
[2019-07-03] MEDS: Insulin DETEMIR 100 UNIT/ML X5UNITS SQ SCH (21:01)
[2019-07-03] MEDS: Melatonin 3 MG TABLET PO PRN (21:01)
[2019-07-04] MEDS: Ipratropium/Albuterol Neb 3 ML IH SCH ×6 (04:02→23:35)
[2019-07-04] MEDS ORDERED: Acetaminophen 325 MG TABLET PO ONE (04:45)
[2019-07-04 04:54] LABS: ABG Base Excess 21 mEq/L (-2 to 3); ABG HCO3 56 mEq/L (21-27); ABG Oxygen Saturation 92 % (95-98); ABG PCO2 87 mmHg (35-45); ABG PH 7.42 pH Units (7.32-7.45); ABG PO2 67 mmHg (85-104); ABG TCO2 > 50 mEq/L (20-26); Blood Gas Modality ST; Blood Gas Pressure Support 8 cm H2O
[2019-07-04] MEDS: Doxycycline 100 MG in 0.9 % Sodium Chloride Mini Bag 100 ML IVPB SCH ×2 (05:11→18:35)
[2019-07-04] MEDS: *HR* Heparin 5,000 UNIT/ML VIAL SQ SCH ×3 (05:12→22:31)
[2019-07-04 06:09] LABS: Basophils % 0.3 %; Eosinophils % 0.5 %; Hematocrit 43.4 % (37.5-50.1); Hemoglobin 13.2 g/dL (12.9-16.9); Immature Granulocytes % 0.8 % (0-4); Lymphocytes # 1.2 K/mcL (0.6-4.6); Lymphocytes % 15.3 %; Mean Corpuscular HGB Conc 30.4 g/dL (31.6-35.5); Mean Corpuscular Hemoglobin 27.1 pg (28.0-33.3); Mean Corpuscular Volume 89.1 fL (83.0-100.0); Mean Platelet Volume 11.1 fL (9.4-12.4); Monocytes % 12.1 %; Neutrophils # 5.6 K/mcL (1.6-8.9); Platelet Count 191 K/mcL (140-400); Red Blood Count 4.87 M/mcL (4.19-5.50); Red Cell Distribution Width 14.5 % (11.5-14.5); White Blood Count 7.8 K/mcL (4.3-11.1)
[2019-07-04 06:42] LABS: BUN/Creatinine Ratio 27 (6-26); Blood Urea Nitrogen 20 mg/dL (8-23); Calcium 9.8 mg/dL (8.6-10.3); Carbon Dioxide > 45 mEq/L (23-29); Chloride 84 mEq/L (98-107); Glucose 114 mg/dL (70-105); Osmolality,Calculated 295 (280-300); Potassium 3.6 mEq/L (3.5-5.1); Sodium 141 mEq/L (136-145); eGFR For African Americans > 60 (> 60); eGFR For Non-African Americans > 60 (> 60)
[2019-07-04] MEDS ORDERED: Furosemide 40 MG/4 ML VIAL IVP ONE (08:36)
[2019-07-04] MEDS: predniSONE 20 MG TABLET PO SCH (08:59)
[2019-07-04] MEDS ORDERED: Furosemide 20 MG/2 ML VIAL IVP SCH (09:00)
[2019-07-04] MEDS: Insulin LISPRO 300 UNITS/3 ML VIAL SQ SCH ×3 (09:41→17:00)
[2019-07-04] MEDS: Ondansetron ODT 4 MG TAB.RAPDIS SL PRN (14:45)
[2019-07-04] MEDS ORDERED: Acetaminophen 325 MG TABLET PO PRN (14:46)
[2019-07-04] MEDS ORDERED: Chloraseptic Spray 177 ML BOTTLE MM PRN (14:47)
[2019-07-04] MEDS: Melatonin 3 MG TABLET PO PRN (19:38)
[2019-07-04] MEDS: Insulin DETEMIR 100 UNIT/ML X5UNITS SQ SCH (19:39)
[2019-07-05] MEDS: Ipratropium/Albuterol Neb 3 ML IH SCH ×6 (03:44→23:34)
[2019-07-05 04:55] LABS: Basophils % 0.3 %; Eosinophils % 0.3 %; Hematocrit 45.5 % (37.5-50.1); Hemoglobin 13.4 g/dL (12.9-16.9); Immature Granulocytes % 0.8 % (0-4); Lymphocytes # 1.3 K/mcL (0.6-4.6); Lymphocytes % 16.2 %; Mean Corpuscular HGB Conc 29.5 g/dL (31.6-35.5); Mean Corpuscular Hemoglobin 26.5 pg (28.0-33.3); Mean Corpuscular Volume 90.1 fL (83.0-100.0); Mean Platelet Volume 11.8 fL (9.4-12.4); Monocytes # 0.8 K/mcL (0.0-1.3); Monocytes % 9.9 %; Neutrophils # 5.8 K/mcL (1.6-8.9); Platelet Count 187 K/mcL (140-400); Red Blood Count 5.05 M/mcL (4.19-5.50); Red Cell Distribution Width 14.6 % (11.5-14.5); Segmented Neutrophils % 72.5 %
[2019-07-05] MEDS: Doxycycline 100 MG in 0.9 % Sodium Chloride Mini Bag 100 ML IVPB SCH (05:21)
[2019-07-05] MEDS: *HR* Heparin 5,000 UNIT/ML VIAL SQ SCH ×3 (05:21→19:52)
[2019-07-05 05:37] LABS: BUN/Creatinine Ratio 28 (6-26); Blood Urea Nitrogen 20 mg/dL (8-23); Calcium 9.7 mg/dL (8.6-10.3); Carbon Dioxide > 45 mEq/L (23-29); Chloride 85 mEq/L (98-107); Glucose 103 mg/dL (70-105); Osmolality,Calculated 293 (280-300); Potassium 3.4 mEq/L (3.5-5.1); Sodium 140 mEq/L (136-145); eGFR For African Americans > 60 (> 60); eGFR For Non-African Americans > 60 (> 60)
[2019-07-05] MEDS: Insulin LISPRO 300 UNITS/3 ML VIAL SQ SCH ×3 (07:42→15:25)
[2019-07-05] MEDS: predniSONE 20 MG TABLET PO SCH ×2 (08:03→09:02)
[2019-07-05] MEDS ORDERED: *HR* Dextrose 50 % in Water (Syg) 50 ML SYRINGE IVP PRN (08:08)
[2019-07-05] MEDS ORDERED: Chloraseptic Spray 177 ML BOTTLE MM PRN (08:08)
[2019-07-05] MEDS ORDERED: Ondansetron ODT 4 MG TAB.RAPDIS SL PRN (08:08)
[2019-07-05] MEDS ORDERED: Dextrose Gel 15 GM/37.5 ML TUBE PO PRN ×2 (08:08)
[2019-07-05] MEDS ORDERED: Albuterol 2.5 MG/3 ML NEBULIZER IH PRN (08:08)
[2019-07-05] MEDS ORDERED: Naloxone 0.4 MG/ML INJ IVP PRN (08:08)
[2019-07-05] MEDS ORDERED: D5% in Water 1,000 ML IVC PRN (08:08)
[2019-07-05] MEDS ORDERED: Doxycycline 100 MG CAPSULE PO SCH (09:00)
[2019-07-05] MEDS ORDERED: Budesonide/Formoterol 160/4.5 1 PUFF INH IH SCH (10:00)
[2019-07-05] MEDS: Budesonide/Formoterol 160/4.5 1 PUFF INH IH SCH ×2 (11:39→19:48)
[2019-07-05] MEDS: Artificial Tears SOLN 15 ML BOTTLE BOTH EYES SCH ×2 (16:42→19:49)
[2019-07-05] MEDS: Insulin DETEMIR 100 UNIT/ML X5UNITS SQ SCH (19:49)
[2019-07-05] MEDS: Doxycycline 100 MG CAPSULE PO SCH (19:49)
[2019-07-05] MEDS: Melatonin 3 MG TABLET PO PRN (19:52)
[2019-07-06] MEDS: Ipratropium/Albuterol Neb 3 ML IH SCH ×6 (03:35→23:48)
[2019-07-06 04:11] LABS: Basophils % 0.1 %; Eosinophils % 0.3 %; Hematocrit 41.8 % (37.5-50.1); Hemoglobin 12.8 g/dL (12.9-16.9); Immature Granulocytes % 0.6 % (0-4); Lymphocytes # 1.6 K/mcL (0.6-4.6); Lymphocytes % 17.1 %; Mean Corpuscular HGB Conc 30.6 g/dL (31.6-35.5); Mean Corpuscular Hemoglobin 26.6 pg (28.0-33.3); Mean Corpuscular Volume 86.7 fL (83.0-100.0); Mean Platelet Volume 11.1 fL (9.4-12.4); Monocytes # 0.8 K/mcL (0.0-1.3); Monocytes % 9.2 %; Neutrophils # 6.6 K/mcL (1.6-8.9); Platelet Count 172 K/mcL (140-400); Red Blood Count 4.82 M/mcL (4.19-5.50); Red Cell Distribution Width 14.7 % (11.5-14.5); Segmented Neutrophils % 72.7 %; White Blood Count 9.1 K/mcL (4.3-11.1)
[2019-07-06 04:47] LABS: BUN/Creatinine Ratio 28 (6-26); Blood Urea Nitrogen 17 mg/dL (8-23); Calcium 9.7 mg/dL (8.6-10.3); Carbon Dioxide > 45 mEq/L (23-29); Chloride 89 mEq/L (98-107); Glucose 156 mg/dL (70-105); Osmolality,Calculated 295 (280-300); Potassium 3.4 mEq/L (3.5-5.1); Sodium 140 mEq/L (136-145); eGFR For African Americans > 60 (> 60); eGFR For Non-African Americans > 60 (> 60)
[2019-07-06] MEDS: *HR* Heparin 5,000 UNIT/ML VIAL SQ SCH ×3 (05:33→21:50)
[2019-07-06] MEDS: predniSONE 20 MG TABLET PO SCH (07:56)
[2019-07-06] MEDS: Doxycycline 100 MG CAPSULE PO SCH ×2 (07:56→21:50)
[2019-07-06] MEDS: Insulin LISPRO 300 UNITS/3 ML VIAL SQ SCH ×3 (07:57→17:17)
[2019-07-06] MEDS: Artificial Tears SOLN 15 ML BOTTLE BOTH EYES SCH ×4 (07:57→21:50)
[2019-07-06] MEDS: Budesonide/Formoterol 160/4.5 1 PUFF INH IH SCH ×2 (08:06→19:39)
[2019-07-06] MEDS: Acetaminophen 325 MG TABLET PO PRN ×2 (09:27→23:51)
[2019-07-06] MEDS: Insulin DETEMIR 100 UNIT/ML X5UNITS SQ SCH (21:50)
[2019-07-06] MEDS: Melatonin 3 MG TABLET PO PRN (23:52)
[2019-07-07 02:22] LABS: Basophils % 0.2 %; Eosinophils % 0.1 %; Hematocrit 41.5 % (37.5-50.1); Hemoglobin 12.5 g/dL (12.9-16.9); Immature Granulocytes % 0.9 % (0-4); Lymphocytes # 1.4 K/mcL (0.6-4.6); Lymphocytes % 15.1 %; Mean Corpuscular HGB Conc 30.1 g/dL (31.6-35.5); Mean Corpuscular Hemoglobin 27.2 pg (28.0-33.3); Mean Corpuscular Volume 90.2 fL (83.0-100.0); Mean Platelet Volume 10.5 fL (9.4-12.4); Monocytes # 0.8 K/mcL (0.0-1.3); Monocytes % 8.6 %; Neutrophils # 6.8 K/mcL (1.6-8.9); Platelet Count 161 K/mcL (140-400); Red Cell Distribution Width 15.1 % (11.5-14.5); Segmented Neutrophils % 75.1 %; White Blood Count 9.1 K/mcL (4.3-11.1)
[2019-07-07 02:59] LABS: BUN/Creatinine Ratio 31 (6-26); Blood Urea Nitrogen 21 mg/dL (8-23); Calcium 9.4 mg/dL (8.6-10.3); Carbon Dioxide 42 mEq/L (23-29); Chloride 94 mEq/L (98-107); Glucose 185 mg/dL (70-105); Osmolality,Calculated 298 (280-300); Potassium 3.9 mEq/L (3.5-5.1); Sodium 140 mEq/L (136-145); eGFR For African Americans > 60 (> 60); eGFR For Non-African Americans > 60 (> 60)
[2019-07-07] MEDS: Ipratropium/Albuterol Neb 3 ML IH SCH ×5 (04:01→19:47)
[2019-07-07] MEDS: *HR* Heparin 5,000 UNIT/ML VIAL SQ SCH ×3 (06:17→21:45)
[2019-07-07] MEDS: Budesonide/Formoterol 160/4.5 1 PUFF INH IH SCH ×2 (07:29→19:47)
[2019-07-07] MEDS: Doxycycline 100 MG CAPSULE PO SCH (09:21)
[2019-07-07] MEDS: Acetaminophen 325 MG TABLET PO PRN ×2 (09:21→15:49)
[2019-07-07] MEDS: Artificial Tears SOLN 15 ML BOTTLE BOTH EYES SCH ×4 (09:21→21:45)
[2019-07-07] MEDS: predniSONE 20 MG TABLET PO SCH (09:21)
[2019-07-07] MEDS: Insulin LISPRO 300 UNITS/3 ML VIAL SQ SCH ×3 (09:22→18:00)
[2019-07-07] MEDS: Insulin DETEMIR 100 UNIT/ML X5UNITS SQ SCH (21:45)
[2019-07-08] MEDS: Ipratropium/Albuterol Neb 3 ML IH SCH ×3 (00:26→07:50)
[2019-07-08 04:23] LABS: Basophils % 0.1 %; Eosinophils % 0.4 %; Hematocrit 42.7 % (37.5-50.1); Hemoglobin 13.1 g/dL (12.9-16.9); Lymphocytes # 1.4 K/mcL (0.6-4.6); Lymphocytes % 14.3 %; Mean Corpuscular HGB Conc 30.7 g/dL (31.6-35.5); Mean Corpuscular Hemoglobin 27.3 pg (28.0-33.3); Mean Platelet Volume 11.4 fL (9.4-12.4); Monocytes # 0.8 K/mcL (0.0-1.3); Monocytes % 8.1 %; Neutrophils # 7.5 K/mcL (1.6-8.9); Platelet Count 187 K/mcL (140-400); Red Cell Distribution Width 15.3 % (11.5-14.5); Segmented Neutrophils % 76.1 %; White Blood Count 9.8 K/mcL (4.3-11.1)
[2019-07-08 04:42] LABS: BUN/Creatinine Ratio 26 (6-26); Blood Urea Nitrogen 18 mg/dL (8-23); Calcium 9.5 mg/dL (8.6-10.3); Carbon Dioxide 39 mEq/L (23-29); Chloride 92 mEq/L (98-107); Glucose 212 mg/dL (70-105); Osmolality,Calculated 290 (280-300); Potassium 4.1 mEq/L (3.5-5.1); Sodium 136 mEq/L (136-145); eGFR For African Americans > 60 (> 60); eGFR For Non-African Americans > 60 (> 60)
[2019-07-08] MEDS: *HR* Heparin 5,000 UNIT/ML VIAL SQ SCH (05:37)
[2019-07-08 07:47] VITALS: BP 108/73
[2019-07-08] MEDS: Budesonide/Formoterol 160/4.5 1 PUFF INH IH SCH (07:50)
[2019-07-08] MEDS: predniSONE 20 MG TABLET PO SCH (09:03)
[2019-07-08] MEDS: Acetaminophen 325 MG TABLET PO PRN (09:03)
[2019-07-08] MEDS: Artificial Tears SOLN 15 ML BOTTLE BOTH EYES SCH (09:04)
[2019-07-08] MEDS: Insulin LISPRO 300 UNITS/3 ML VIAL SQ SCH (09:04)
== END 2019-07-08 11:20 | disposition home health service (06) | DRG 194 ==
LOC: ICNU → SUATTDRO 22:49 → 2ANU 07-06 16:18
PROVIDERS: ADMIT Internal Medicine; ATTEND Family Medicine

== ENCOUNTER 2019-08-11 16:09 | Inpatient (IN) ==
[2019-08-11 17:29] LABS: Basophils % 0.3 %; Eosinophils # 0.1 K/mcL (0.0-0.6); Eosinophils % 1.2 %; Hematocrit 42.5 % (37.5-50.1); Hemoglobin 12.5 g/dL (12.9-16.9); Immature Granulocytes % 0.3 % (0-4); Lymphocytes # 1.2 K/mcL (0.6-4.6); Lymphocytes % 13.9 %; Mean Corpuscular HGB Conc 29.4 g/dL (31.6-35.5); Mean Corpuscular Hemoglobin 26.8 pg (28.0-33.3); Mean Corpuscular Volume 91.2 fL (83.0-100.0); Monocytes % 11.3 %; Neutrophils # 6.3 K/mcL (1.6-8.9); Platelet Count 209 K/mcL (140-400); Red Blood Count 4.66 M/mcL (4.19-5.50); Red Cell Distribution Width 15.3 % (11.5-14.5); White Blood Count 8.6 K/mcL (4.3-11.1)
[2019-08-11 17:39] LABS: INR 1.3; Prothrombin Time 14.6 Seconds (9.4-12.1)
[2019-08-11] MEDS ORDERED: Ipratropium/Albuterol Neb 3 ML IH ONE ×2 (17:52→20:11)
[2019-08-11 17:54] LABS: Troponin I 0.04 ng/mL (< 0.04)
[2019-08-11 18:03] LABS: BUN/Creatinine Ratio 16 (6-26); Blood Urea Nitrogen 10 mg/dL (8-23); Calcium 9.3 mg/dL (8.6-10.3); Chloride 97 mEq/L (98-107); Glucose 64 mg/dL (70-105); Osmolality,Calculated 295 (280-300); Potassium 4.1 mEq/L (3.5-5.1); Sodium 144 mEq/L (136-145); eGFR For African Americans > 60 (> 60); eGFR For Non-African Americans > 60 (> 60)
[2019-08-11] MEDS ORDERED: Isovue-370 500 ML BOTTLE IVP ONE (19:58)
[2019-08-11] MEDS ORDERED: *HR* Rivaroxaban 15 MG TABLET PO ONE (20:11)
[2019-08-11] MEDS ORDERED: methylPREDNISolone 125 MG/2 ML VIAL IVP ONE (20:12)
[2019-08-11 21:47] LABS: Carbon Dioxide 41 mEq/L (23-29)
[2019-08-11 22:19] LABS: Digoxin 0.5 ng/mL (0.8-2.0)
[2019-08-11] MEDS ORDERED: Albuterol 2.5 MG/3 ML NEBULIZER IH PRN (23:09)
[2019-08-12] MEDS: MethylPREDNISolone 40 MG/ML VIAL IVP SCH ×5 (01:09→23:01)
[2019-08-12] MEDS: Ipratropium/Albuterol Neb 3 ML IH SCH ×4 (03:58→22:31)
[2019-08-12] MEDS ORDERED: Menthol 9.1 MG LOZENGE PO PRN (04:17)
[2019-08-12] MEDS ORDERED: Naloxone 0.4 MG/ML INJ IVP PRN (04:25)
[2019-08-12 05:32] LABS: Hematocrit 44.9 % (37.5-50.1); Hemoglobin 13.1 g/dL (12.9-16.9); Mean Corpuscular HGB Conc 29.2 g/dL (31.6-35.5); Mean Corpuscular Hemoglobin 26.3 pg (28.0-33.3); Mean Platelet Volume 11.6 fL (9.4-12.4); Platelet Count 216 K/mcL (140-400); Red Blood Count 4.99 M/mcL (4.19-5.50); Red Cell Distribution Width 15.2 % (11.5-14.5); White Blood Count 9.3 K/mcL (4.3-11.1)
[2019-08-12 06:09] LABS: BUN/Creatinine Ratio 14 (6-26); Blood Urea Nitrogen 11 mg/dL (8-23); Calcium 9.7 mg/dL (8.6-10.3); Carbon Dioxide 37 mEq/L (23-29); Chloride 94 mEq/L (98-107); Glucose 210 mg/dL (70-105); Osmolality,Calculated 298 (280-300); Potassium 4.7 mEq/L (3.5-5.1); Sodium 141 mEq/L (136-145); Troponin I 0.03 ng/mL (< 0.04); eGFR For African Americans > 60 (> 60); eGFR For Non-African Americans > 60 (> 60)
[2019-08-12] MEDS ORDERED: Dextrose Gel 15 GM/37.5 ML TUBE PO PRN ×2 (06:31)
[2019-08-12] MEDS ORDERED: *HR* Dextrose 50 % in Water (Syg) 50 ML SYRINGE IVP PRN (06:31)
[2019-08-12] MEDS ORDERED: D5% in Water 1,000 ML IVC PRN (06:31)
[2019-08-12] MEDS: Aspirin Enteric Coated 81 MG Tablet PO SCH (08:37)
[2019-08-12] MEDS: *HR* Rivaroxaban 15 MG TABLET PO SCH ×2 (08:38→17:09)
[2019-08-12] MEDS: *HR* Digoxin 0.125 MG TABLET PO SCH (08:38)
[2019-08-12] MEDS: Metoprolol XL (24 HR) Succ 50 MG TAB.ER.24H PO SCH (08:38)
[2019-08-12] MEDS: Insulin LISPRO 300 UNITS/3 ML VIAL SQ SCH ×3 (08:39→17:09)
[2019-08-12] MEDS: Finasteride 5 MG TABLET PO SCH (08:40)
[2019-08-12] MEDS: Spironolactone 25 MG TABLET PO SCH (08:40)
[2019-08-12] MEDS ORDERED: Bumetanide 1 MG TABLET PO SCH (09:00)
[2019-08-12] MEDS: Budesonide/Formoterol 160/4.5 1 PUFF INH IH SCH ×2 (11:33→22:31)
[2019-08-12] MEDS: Furosemide 40 MG/4 ML VIAL IVP SCH (17:08)
[2019-08-12] MEDS: Sucralfate 1 GM TABLET PO SCH (20:38)
[2019-08-12] MEDS ORDERED: Insulin LISPRO 300 UNITS/3 ML VIAL SQ SCH (21:00)
[2019-08-12 22:56] LABS: Bilirubin,Urine Negative (Negative); Blood,Urine Negative (Negative); Clarity,Urine Clear (Clear); Color,Urine Yellow (Yellow); Glucose,Urine (UA) 250 mg/dL (Normal); Ketones,Urine Negative (Negative); Leukocyte Esterase,Urine Small (Negative); Nitrite,Urine Negative (Negative); Protein,Urine Negative (Neg-Trace); Specific Gravity,Urine 1.014 (1.010-1.025); Urobilinogen,Urine Normal (Normal)
[2019-08-12 22:58] LABS: Bacteria,Urine None Seen per hpf (None-Few); Hyaline Casts,Urine None Seen per lpf (None-Few); RBC,Urine 0-3 per hpf (0-3); Squamous Epithelial Cell,Urine Moderate per lpf (None-Few)
[2019-08-13] MEDS ORDERED: Acetaminophen 325 MG TABLET PO ONE (01:10)
[2019-08-13] MEDS: Ipratropium/Albuterol Neb 3 ML IH SCH ×2 (04:17→10:15)
[2019-08-13] MEDS: MethylPREDNISolone 40 MG/ML VIAL IVP SCH (05:58)
[2019-08-13 07:08] VITALS: BP 125/78
[2019-08-13] MEDS: *HR* Rivaroxaban 15 MG TABLET PO SCH (08:35)
[2019-08-13] MEDS: *HR* Digoxin 0.125 MG TABLET PO SCH (08:36)
[2019-08-13] MEDS: Sucralfate 1 GM TABLET PO SCH (08:36)
[2019-08-13] MEDS: Finasteride 5 MG TABLET PO SCH (08:36)
[2019-08-13] MEDS: Furosemide 40 MG/4 ML VIAL IVP SCH (08:36)
[2019-08-13] MEDS: Spironolactone 25 MG TABLET PO SCH (08:36)
[2019-08-13] MEDS: Metoprolol XL (24 HR) Succ 50 MG TAB.ER.24H PO SCH (08:36)
[2019-08-13] MEDS: Aspirin Enteric Coated 81 MG Tablet PO SCH (08:36)
[2019-08-13] MEDS: Insulin LISPRO 300 UNITS/3 ML VIAL SQ SCH ×2 (08:37→12:50)
[2019-08-13] MEDS ORDERED: Isosorbide MONOnitrate (24 HR) 60 MG TAB.ER.24H PO SCH (09:00)
[2019-08-13] MEDS: Budesonide/Formoterol 160/4.5 1 PUFF INH IH SCH (10:15)
[2019-08-19] MEDS ORDERED: Isovue-370 500 ML BOTTLE IVP ONE (13:14)
== END 2019-08-13 14:27 | disposition home health service (06) | DRG 197 ==
LOC: EMEROOARM 16:09 → 3BNU 16:09
PROVIDERS: ADMIT Internal Medicine; ATTEND Internal Medicine

== ENCOUNTER 2019-08-26 19:55 | Inpatient (IN) ==
[2019-08-26] MEDS ORDERED: Furosemide 40 MG/4 ML VIAL IVP ONE ×2 (20:14→23:45)
[2019-08-26] MEDS ORDERED: Isovue-370 500 ML BOTTLE IVP ONE (20:20)
[2019-08-26 20:33] LABS: Basophils % 0.4 %; Eosinophils # 0.2 K/mcL (0.0-0.6); Eosinophils % 1.7 %; Hematocrit 39.6 % (37.5-50.1); Hemoglobin 11.5 g/dL (12.9-16.9); Immature Granulocytes % 0.4 % (0-4); Lymphocytes # 0.9 K/mcL (0.6-4.6); Lymphocytes % 8.9 %; Mean Corpuscular Hemoglobin 25.8 pg (28.0-33.3); Mean Platelet Volume 10.7 fL (9.4-12.4); Monocytes # 0.8 K/mcL (0.0-1.3); Monocytes % 8.8 %; Neutrophils # 7.6 K/mcL (1.6-8.9); Platelet Count 258 K/mcL (140-400); Red Blood Count 4.45 M/mcL (4.19-5.50); Red Cell Distribution Width 15.7 % (11.5-14.5); Segmented Neutrophils % 79.8 %; White Blood Count 9.5 K/mcL (4.3-11.1)
[2019-08-26 20:55] LABS: BUN/Creatinine Ratio 24 (6-26); Blood Urea Nitrogen 17 mg/dL (8-23); Calcium 9.2 mg/dL (8.6-10.3); Carbon Dioxide 38 mEq/L (23-29); Chloride 98 mEq/L (98-107); Glucose 123 mg/dL (70-105); Osmolality,Calculated 295 (280-300); Potassium 4.3 mEq/L (3.5-5.1); Sodium 141 mEq/L (136-145); Troponin I 0.03 ng/mL (< 0.04); eGFR For African Americans > 60 (> 60); eGFR For Non-African Americans > 60 (> 60)
[2019-08-27 00:43] LABS: Thyroid Stimulating Hormone 1.195 mcIU/mL (0.340-5.600)
[2019-08-27] MEDS ORDERED: Acetaminophen 325 MG TABLET PO PRN (00:58)
[2019-08-27] MEDS ORDERED: Levalbuterol Neb 1.25 MG/3 ML IH PRN (01:03)
[2019-08-27] MEDS ORDERED: Naloxone 0.4 MG/ML INJ IVP PRN (07:31)
[2019-08-27] MEDS ORDERED: Ipratropium Neb 0.5 MG NEBULIZER IH PRN (07:34)
[2019-08-27] MEDS ORDERED: Sennosides 8.6 MG TABLET PO PRN (07:35)
[2019-08-27] MEDS ORDERED: *HR* Dextrose 50 % in Water (Syg) 50 ML SYRINGE IVP PRN (07:37)
[2019-08-27] MEDS ORDERED: D5% in Water 1,000 ML IVC PRN (07:37)
[2019-08-27] MEDS ORDERED: Dextrose Gel 15 GM/37.5 ML TUBE PO PRN ×2 (07:37)
[2019-08-27 08:24] LABS: BUN/Creatinine Ratio 20 (6-26); Blood Urea Nitrogen 15 mg/dL (8-23); Calcium 9.4 mg/dL (8.6-10.3); Carbon Dioxide 44 mEq/L (23-29); Chloride 91 mEq/L (98-107); Glucose 64 mg/dL (70-105); Osmolality,Calculated 295 (280-300); Sodium 143 mEq/L (136-145); eGFR For African Americans > 60 (> 60); eGFR For Non-African Americans > 60 (> 60)
[2019-08-27] MEDS: Finasteride 5 MG TABLET PO SCH (08:42)
[2019-08-27] MEDS: Metoprolol XL (24 HR) Succ 50 MG TAB.ER.24H PO SCH (08:43)
[2019-08-27] MEDS: *HR* Digoxin 0.125 MG TABLET PO SCH (08:43)
[2019-08-27] MEDS: Artificial Tears SOLN 15 ML BOTTLE RIGHT EYE SCH ×4 (08:43→22:27)
[2019-08-27] MEDS: *HR* Rivaroxaban 15 MG TABLET PO SCH ×2 (08:48→16:25)
[2019-08-27] MEDS: Aspirin Enteric Coated 81 MG Tablet PO SCH (08:48)
[2019-08-27] MEDS: Acetaminophen 325 MG TABLET PO PRN ×2 (08:48→21:36)
[2019-08-27] MEDS ORDERED: Furosemide 40 MG in 0.9 % Sodium Chloride 50 ML IV SCH (09:00)
[2019-08-27] MEDS: Levalbuterol Neb 0.63 MG/3 ML IH SCH ×3 (10:14→21:20)
[2019-08-27 11:42] LABS: INR 2.6; Prothrombin Time 30.1 Seconds (9.4-12.1)
[2019-08-27] MEDS: Insulin LISPRO 300 UNITS/3 ML VIAL SQ SCH ×3 (11:54→21:25)
[2019-08-27] MEDS ORDERED: Budesonide/Formoterol 160/4.5 1 PUFF INH IH SCH (12:00)
[2019-08-27] MEDS ORDERED: Bumetanide 1 MG/4 ML VIAL IVP ONE (12:00)
[2019-08-27] MEDS ORDERED: Perflutren Lipid Microsphere 1.3 ML in 0.9 % Sodium Chloride 8.7 ML IVP ONE (13:23)
[2019-08-27] MEDS: Budesonide/Formoterol 160/4.5 1 PUFF INH IH SCH (21:19)
[2019-08-27] MEDS: Sucralfate 1 GM TABLET PO SCH (21:23)
[2019-08-27 21:31] LABS: Bilirubin,Urine Small (Negative); Blood,Urine Large (Negative); Clarity,Urine Cloudy (Clear); Color,Urine Dark Yellow (Yellow); Glucose,Urine (UA) Normal (Normal); Ketones,Urine Negative (Negative); Leukocyte Esterase,Urine Small (Negative); Nitrite,Urine Negative (Negative); Protein,Urine 100 mg/dL (Neg-Trace); Specific Gravity,Urine 1.025 (1.010-1.025); Urobilinogen,Urine Normal (Normal)
[2019-08-27 21:32] LABS: Bacteria,Urine None Seen per hpf (None-Few); Hyaline Casts,Urine None Seen per lpf (None-Few); RBC,Urine TNTC per hpf (0-3); Squamous Epithelial Cell,Urine Many per lpf (None-Few)
[2019-08-28] MEDS ORDERED: *HR* LORazepam 2 MG/ML VIAL IVP ONE (01:05)
[2019-08-28] MEDS: Acetaminophen 325 MG TABLET PO PRN (01:20)
[2019-08-28] MEDS: Levalbuterol Neb 0.63 MG/3 ML IH SCH ×4 (03:57→22:32)
[2019-08-28] MEDS: Aspirin Enteric Coated 81 MG Tablet PO SCH (08:42)
[2019-08-28] MEDS: *HR* Digoxin 0.125 MG TABLET PO SCH (08:42)
[2019-08-28] MEDS: *HR* Rivaroxaban 15 MG TABLET PO SCH ×2 (08:42→16:48)
[2019-08-28] MEDS: Sucralfate 1 GM TABLET PO SCH ×2 (08:42→22:00)
[2019-08-28] MEDS: Finasteride 5 MG TABLET PO SCH (08:42)
[2019-08-28] MEDS: Metoprolol XL (24 HR) Succ 50 MG TAB.ER.24H PO SCH (08:42)
[2019-08-28] MEDS: Bumetanide 1 MG/4 ML VIAL IVP SCH ×2 (08:43→16:48)
[2019-08-28] MEDS: Insulin LISPRO 300 UNITS/3 ML VIAL SQ SCH ×4 (08:43→22:00)
[2019-08-28] MEDS: Artificial Tears SOLN 15 ML BOTTLE RIGHT EYE SCH ×4 (08:44→22:10)
[2019-08-28] MEDS: Budesonide/Formoterol 160/4.5 1 PUFF INH IH SCH ×2 (11:18→22:32)
[2019-08-28 11:58] LABS: ABG Base Excess 16 mEq/L (-2 to 3); ABG HCO3 48 mEq/L (21-27); ABG Oxygen Saturation 93 % (95-98); ABG PCO2 101 mmHg (35-45); ABG PH 7.29 pH Units (7.32-7.45); ABG PO2 82 mmHg (85-104); ABG TCO2 > 50 mEq/L (20-26)
[2019-08-28 12:59] LABS: Basophils % 0.6 %; Eosinophils # 0.1 K/mcL (0.0-0.6); Eosinophils % 1.4 %; Hemoglobin 11.6 g/dL (12.9-16.9); Immature Granulocytes % 0.4 % (0-4); Lymphocytes # 0.6 K/mcL (0.6-4.6); Lymphocytes % 8.6 %; Mean Corpuscular Volume 89.5 fL (83.0-100.0); Monocytes # 0.8 K/mcL (0.0-1.3); Monocytes % 10.7 %; Neutrophils # 5.6 K/mcL (1.6-8.9); Platelet Count 231 K/mcL (140-400); Red Blood Count 4.47 M/mcL (4.19-5.50); Red Cell Distribution Width 15.7 % (11.5-14.5); Segmented Neutrophils % 78.3 %; White Blood Count 7.2 K/mcL (4.3-11.1)
[2019-08-28 13:08] LABS: VBG HCO3 47 mEq/L (21-27); VBG PCO2 74 mmHg (41-51); VBG PH 7.41 pH Units (7.32-7.42); VBG PO2 134 mmHg (25-50)
[2019-08-28 13:27] LABS: BUN/Creatinine Ratio 20 (6-26); Blood Urea Nitrogen 17 mg/dL (8-23); Calcium 9.3 mg/dL (8.6-10.3); Carbon Dioxide > 45 mEq/L (23-29); Chloride 91 mEq/L (98-107); Glucose 145 mg/dL (70-105); Osmolality,Calculated 300 (280-300); Sodium 143 mEq/L (136-145); eGFR For African Americans > 60 (> 60); eGFR For Non-African Americans > 60 (> 60)
[2019-08-28 18:14] LABS: VBG HCO3 45 mEq/L (21-27); VBG PCO2 73 mmHg (41-51); VBG PH 7.39 pH Units (7.32-7.42); VBG PO2 151 mmHg (25-50)
[2019-08-29 03:54] LABS: BUN/Creatinine Ratio 23 (6-26); Blood Urea Nitrogen 16 mg/dL (8-23); Calcium 9.3 mg/dL (8.6-10.3); Carbon Dioxide > 45 mEq/L (23-29); Chloride 93 mEq/L (98-107); Glucose 97 mg/dL (70-105); Osmolality,Calculated 293 (280-300); Potassium 3.8 mEq/L (3.5-5.1); Sodium 141 mEq/L (136-145); eGFR For African Americans > 60 (> 60); eGFR For Non-African Americans > 60 (> 60)
[2019-08-29 03:56] LABS: VBG HCO3 46 mEq/L (21-27); VBG PCO2 76 mmHg (41-51); VBG PH 7.39 pH Units (7.32-7.42); VBG PO2 211 mmHg (25-50)
[2019-08-29] MEDS: Levalbuterol Neb 0.63 MG/3 ML IH SCH ×3 (04:17→15:08)
[2019-08-29] MEDS: Insulin LISPRO 300 UNITS/3 ML VIAL SQ SCH ×3 (08:28→18:12)
[2019-08-29] MEDS: Budesonide/Formoterol 160/4.5 1 PUFF INH IH SCH (10:29)
[2019-08-29] MEDS: Bumetanide 1 MG/4 ML VIAL IVP SCH (10:38)
[2019-08-29] MEDS: Finasteride 5 MG TABLET PO SCH (10:38)
[2019-08-29] MEDS: Aspirin Enteric Coated 81 MG Tablet PO SCH (10:39)
[2019-08-29] MEDS: Sucralfate 1 GM TABLET PO SCH (10:39)
[2019-08-29] MEDS: Metoprolol XL (24 HR) Succ 50 MG TAB.ER.24H PO SCH (10:39)
[2019-08-29] MEDS: *HR* Rivaroxaban 15 MG TABLET PO SCH (10:39)
[2019-08-29] MEDS: *HR* Digoxin 0.125 MG TABLET PO SCH (10:39)
[2019-08-29] MEDS: Artificial Tears SOLN 15 ML BOTTLE RIGHT EYE SCH ×2 (10:39→15:04)
[2019-08-29 11:17] LABS: VBG HCO3 48 mEq/L (21-27); VBG PCO2 96 mmHg (41-51); VBG PO2 187 mmHg (25-50)
[2019-08-29 13:44] LABS: ABG Base Excess 22 mEq/L (-2 to 3); ABG HCO3 54 mEq/L (21-27); ABG Oxygen Saturation 97 % (95-98); ABG PCO2 98 mmHg (35-45); ABG PH 7.35 pH Units (7.32-7.45); ABG PO2 101 mmHg (85-104); ABG TCO2 > 50 mEq/L (20-26); Blood Gas Modality NIV
[2019-08-29 14:56] VITALS: BP 105/66
== END 2019-08-29 18:40 | disposition other institution (70) | DRG 194 ==
LOC: 3ANU 19:55 → EMEROOARM 19:55 → SUATTDRO 23:34 → 3ANU 08-27 00:20
PROVIDERS: ADMIT Internal Medicine; ATTEND Internal Medicine

== ENCOUNTER 2019-09-27 03:24 | Observation (INO) ==
[2019-09-27] MEDS ORDERED: Ipratropium/Albuterol Neb 3 ML IH ONE (03:30)
[2019-09-27] MEDS ORDERED: methylPREDNISolone 125 MG/2 ML VIAL IVP ONE (03:30)
[2019-09-27] MEDS ORDERED: Azithromycin 500 MG in 0.9 % Sodium Chloride 250 ML IVPB ONE (03:30)
[2019-09-27] MEDS ORDERED: GI Cocktail 40 ML EACH PO ONE (04:41)
[2019-09-27 05:09] LABS: BUN/Creatinine Ratio 16 (6-26); Blood Urea Nitrogen 13 mg/dL (8-23); Calcium 9.1 mg/dL (8.6-10.3); Carbon Dioxide 36 mEq/L (23-29); Chloride 94 mEq/L (98-107); Glucose 152 mg/dL (70-105); Magnesium 1.5 mg/dL (1.6-2.6); Osmolality,Calculated 291 (280-300); Sodium 139 mEq/L (136-145); Troponin I < 0.03 ng/mL (< 0.04); eGFR For African Americans > 60 (> 60); eGFR For Non-African Americans > 60 (> 60)
[2019-09-27 05:10] LABS: Basophils % 0.4 %; Eosinophils # 0.2 K/mcL (0.0-0.6); Eosinophils % 1.9 %; Hematocrit 40.8 % (37.5-50.1); Immature Granulocytes % 0.3 % (0-4); Lymphocytes # 1.1 K/mcL (0.6-4.6); Lymphocytes % 11.2 %; Mean Corpuscular HGB Conc 29.4 g/dL (31.6-35.5); Mean Corpuscular Hemoglobin 25.3 pg (28.0-33.3); Mean Corpuscular Volume 86.1 fL (83.0-100.0); Monocytes # 1.1 K/mcL (0.0-1.3); Monocytes % 11.8 %; Neutrophils # 7.1 K/mcL (1.6-8.9); Platelet Count 257 K/mcL (140-400); Red Blood Count 4.74 M/mcL (4.19-5.50); Segmented Neutrophils % 74.4 %; White Blood Count 9.6 K/mcL (4.3-11.1)
[2019-09-27] MEDS ORDERED: Bumetanide 1 MG/4 ML VIAL IVP ONE (05:31)
[2019-09-27 05:48] LABS: VBG HCO3 38 mEq/L (21-27); VBG PCO2 65 mmHg (41-51); VBG PH 7.37 pH Units (7.32-7.42); VBG PO2 100 mmHg (25-50)
[2019-09-27 06:25] LABS: Digoxin < 0.3 ng/mL (0.8-2.0)
[2019-09-27] MEDS ORDERED: Naloxone 0.4 MG/ML INJ IVP PRN (08:16)
[2019-09-27] MEDS ORDERED: NON-FORMULARY MEDICATION 1 EACH EACH (Tiotropium Bromide [Spiriva Respimat] 2 PUFF) IH SCH (09:00)
[2019-09-27] MEDS: Budesonide/Formoterol 160/4.5 1 PUFF INH IH SCH ×2 (10:18→19:36)
[2019-09-27] MEDS: Tiotropium 18 MCG inhalation IH SCH (10:19)
[2019-09-27] MEDS: Metoprolol XL (24 HR) Succ 50 MG TAB.ER.24H PO SCH (10:52)
[2019-09-27] MEDS: Aspirin Enteric Coated 81 MG Tablet PO SCH (10:52)
[2019-09-27] MEDS: Sennosides 8.6 MG TABLET PO SCH ×2 (10:52→21:03)
[2019-09-27] MEDS: Furosemide 40 MG TABLET PO SCH (10:52)
[2019-09-27] MEDS: Finasteride 5 MG TABLET PO SCH (10:52)
[2019-09-27] MEDS: Fluticasone Propionate Nasal 50 MCG/SPRAY BOTTLE NS SCH ×2 (10:56→20:41)
[2019-09-27] MEDS: *HR* Rivaroxaban 10 MG TABLET PO SCH (18:12)
[2019-09-27] MEDS: Ipratropium/Albuterol Neb 3 ML IH PRN (19:43)
[2019-09-28] MEDS: Ipratropium/Albuterol Neb 3 ML IH PRN (03:00)
[2019-09-28 06:29] LABS: Basophils % 0.1 %; Eosinophils % 0.1 %; Hematocrit 38.6 % (37.5-50.1); Hemoglobin 11.4 g/dL (12.9-16.9); Immature Granulocytes % 0.4 % (0-4); Lymphocytes # 0.9 K/mcL (0.6-4.6); Lymphocytes % 10.2 %; Mean Corpuscular HGB Conc 29.5 g/dL (31.6-35.5); Mean Corpuscular Hemoglobin 24.9 pg (28.0-33.3); Mean Corpuscular Volume 84.3 fL (83.0-100.0); Mean Platelet Volume 10.6 fL (9.4-12.4); Monocytes # 0.8 K/mcL (0.0-1.3); Monocytes % 8.8 %; Neutrophils # 7.2 K/mcL (1.6-8.9); Platelet Count 257 K/mcL (140-400); Red Blood Count 4.58 M/mcL (4.19-5.50); Segmented Neutrophils % 80.4 %
[2019-09-28 06:39] LABS: BUN/Creatinine Ratio 22 (6-26); Blood Urea Nitrogen 17 mg/dL (8-23); Calcium 9.2 mg/dL (8.6-10.3); Carbon Dioxide 38 mEq/L (23-29); Chloride 93 mEq/L (98-107); Glucose 160 mg/dL (70-105); Osmolality,Calculated 293 (280-300); Sodium 139 mEq/L (136-145); eGFR For African Americans > 60 (> 60); eGFR For Non-African Americans > 60 (> 60)
[2019-09-28] MEDS: Budesonide/Formoterol 160/4.5 1 PUFF INH IH SCH ×2 (07:34→19:37)
[2019-09-28] MEDS: Tiotropium 18 MCG inhalation IH SCH (07:34)
[2019-09-28] MEDS: Acetaminophen 325 MG TABLET PO PRN ×2 (08:47→17:49)
[2019-09-28] MEDS: predniSONE 20 MG TABLET PO SCH (08:47)
[2019-09-28] MEDS: Aspirin Enteric Coated 81 MG Tablet PO SCH (08:48)
[2019-09-28] MEDS: Finasteride 5 MG TABLET PO SCH (08:48)
[2019-09-28] MEDS: Sennosides 8.6 MG TABLET PO SCH ×2 (08:48→21:26)
[2019-09-28] MEDS: Fluticasone Propionate Nasal 50 MCG/SPRAY BOTTLE NS SCH ×2 (08:49→21:27)
[2019-09-28] MEDS: Azithromycin 500 MG in 0.9 % Sodium Chloride 250 ML IVPB SCH (08:52)
[2019-09-28] MEDS: Furosemide 40 MG TABLET PO SCH (09:01)
[2019-09-28] MEDS: Metoprolol XL (24 HR) Succ 50 MG TAB.ER.24H PO SCH (09:01)
[2019-09-28] MEDS: Ipratropium/Albuterol Neb 3 ML IH SCH ×4 (11:19→23:27)
[2019-09-28 11:38] LABS: Adenovirus Not Detected (Not Detect); Bordetella Pertussis Not Detected (Not Detect); Chlamydophila pneumoniae Not Detected (Not Detect); Coronavirus 229E Not Detected (Not Detect); Coronavirus HKU1 Not Detected (Not Detect); Coronavirus NL63 Not Detected (Not Detect); Coronavirus OC43 Not Detected (Not Detect); Human Metapneumovirus Not Detected (Not Detect); Human Rhinovirus/Enterovirus DETECTED (Not Detect); Influenza A Subtype 2009 H1 Not Detected (Not Detect); Influenza B Not Detected (Not Detect); Mycoplasma pneumoniae Not Detected (Not Detect); Parainfluenza Virus 1 Not Detected (Not Detect); Parainfluenza Virus 2 Not Detected (Not Detect); Parainfluenza Virus 3 Not Detected (Not Detect); Parainfluenza Virus 4 Not Detected (Not Detect); Respiratory Syncytial Virus Not Detected (Not Detect)
[2019-09-28] MEDS ORDERED: *HR* Dextrose 50 % in Water (Syg) 50 ML SYRINGE IVP PRN (14:17)
[2019-09-28] MEDS ORDERED: Dextrose Gel 15 GM/37.5 ML TUBE PO PRN ×2 (14:17)
[2019-09-28] MEDS ORDERED: D5% in Water 1,000 ML IVC PRN (14:17)
[2019-09-28] MEDS: *HR* Rivaroxaban 10 MG TABLET PO SCH (17:49)
[2019-09-28] MEDS: Insulin LISPRO 300 UNITS/3 ML VIAL SQ SCH (17:50)
[2019-09-28] MEDS ORDERED: Insulin LISPRO 300 UNITS/3 ML VIAL SQ SCH (21:00)
[2019-09-29] MEDS: Ipratropium/Albuterol Neb 3 ML IH SCH ×3 (03:30→11:06)
[2019-09-29 07:03] VITALS: BP 119/80
[2019-09-29] MEDS: Budesonide/Formoterol 160/4.5 1 PUFF INH IH SCH (07:39)
[2019-09-29] MEDS: Insulin LISPRO 300 UNITS/3 ML VIAL SQ SCH (09:27)
[2019-09-29] MEDS: Azithromycin 500 MG in 0.9 % Sodium Chloride 250 ML IVPB SCH (09:27)
[2019-09-29] MEDS: predniSONE 20 MG TABLET PO SCH (09:28)
[2019-09-29] MEDS: Finasteride 5 MG TABLET PO SCH (09:28)
[2019-09-29] MEDS: Sennosides 8.6 MG TABLET PO SCH (09:28)
[2019-09-29] MEDS: Aspirin Enteric Coated 81 MG Tablet PO SCH (09:28)
[2019-09-29] MEDS: Fluticasone Propionate Nasal 50 MCG/SPRAY BOTTLE NS SCH (09:29)
[2019-09-29] MEDS: Furosemide 40 MG TABLET PO SCH (09:34)
[2019-09-29] MEDS: Metoprolol XL (24 HR) Succ 50 MG TAB.ER.24H PO SCH (09:47)
[2019-09-29] MEDS: Acetaminophen 325 MG TABLET PO PRN (13:33)
== END 2019-09-29 13:56 | disposition home health service (06) ==
LOC: EMEROOARM 03:24 → 3ANU 03:24 → SUATTDRO 08:26 → 3ANU 09:45
PROVIDERS: ADMIT Internal Medicine; ATTEND Internal Medicine